=== PATIENT | male | born 1985 | race Caucasian/White ===

== ENCOUNTER 2025-03-23 20:01 | Emergency (ER) | payer BC, SELFPAY ==
[2025-03-23 20:08] VITALS: BP 128/74; PULSE 65; RESP 18; TEMP 36.7; O2SAT 99; BMI 24.4
--- NOTE | 2025-03-23 20:08 | CRLHL7_ITS ---
For Patients: As a result of the Century Cures Act, medical imaging exams and procedure reports are released immediately into your electronic medical record. You may view this report before your referring provider. If you have questions, please contact your health care provider. INDICATION: Right ankle pain TECHNIQUE: Three views right ankle FINDINGS/IMPRESSION: Normal alignment. No acute fracture or acute osseous abnormalities are visualized. Lateral soft tissue edema. Talar dome intact. Ankle mortise is preserved Dictated by Evangelina Livingston MD @ 03/23/2025 9:48:42 PM (Electronically Signed)
--- NOTE | 2025-03-23 20:12 | ED_ITS ---
HPI - Extremity Injury (Lower) General Time Seen by Provider: 20:12 Date Seen: 03/23/25 Chief Complaint: Extremity Pain/Injury, Lower Stated Complaint: Right Ankle injury Time Seen by Provider: 03/23/25 20:11 Source: patient and RN notes reviewed Mode of arrival: ambulatory Limitations: no limitations History of Present Illness HPI Narrative: This 39-year-old male is ambulatory into the ED with some difficulty due to right ankle pain but comes of his own accord. He was playing softball when he was sliding into the plate, feels his cleats cot and then he hit the bag, causing his ankle to roll. His ankle on the right side is swollen, feels quite tense, he almost feels like there is diminished sensation around the ankle due to swelling. He has applied ice, a nurse at the scene told him to go get x- rays. Nothing else was injured. He really is not feeling any numbness or tingling. Related Data Home Medications ?Medication ?Instructions ?Recorded ?Confirmed No Known Home Medications 03/23/25 0811/12 Allergies Allergy/AdvReac Type Severity Reaction Status Date / Time No Known Drug Allergies Allergy Verified 03/23/25 20:10 Review of Systems Narrative: As per HPI. PFSH PFSH Social History Smoking Status: Never smoker Second hand tobacco smoke exposure: No How often do you have a drink containing alcohol: never AUDIT-C Alcohol total score: 0 Non-prescribed substance use: denies use Exam Const: Vital Signs, click to edit/add: Vital Signs - 24 hr 03/23/25 20:08 03/23/25 22:06 03/23/25 22:07 Temperature 98.0 F 98.0 F 98.0 F Pulse Rate [Right Pulse Oximeter] 65 68 68 Respiratory Rate 18 18 18 Blood Pressure [Ri ght Upper Arm] 128/74 124/71 124/71 Pulse Oximetry 99 99 Oxygen Delivery Me thod Room Air Room Air This 39-year-old male is alert, interactive, no apparent distress, seen in exam room 7, resting on the bed comfortably. There is ice overlying his right ankle. When ice is removed there is significant swelling throughout the ankle, significant ecchymosis mostly over the anterolateral ankle. Still has a really good dorsalis pedis pulse, difficult to feel his posterior tibialis pulse due to the swelling. He is not tender over the Achilles tendon. Swelling does distribute down over the midfoot but is metatarsals are not tender, toes and foot itself are not swollen. Normal overall sensation of the toes. Did not ask him to do any range of motion about the ankle or the foot as a do suspect fracture clinically of his ankle. Documenting provider has reviewed patient's vital signs: yes Course Course ED Course: Patient is declining any need for pain medicine at this time. We will get three view x-ray of his ankle to see the extent of injury as I do suspect likely fracture. He will continue to ice and elevate while we await the x-ray imaging. Reevaluation(s) Time of Reevaluation #1: 22:00 Reevaluation #1: Patient fortunately had to wait a bit to get x-rays as there was other acute patient has had of him necessitating CT imaging. His x-ray surprisingly is negative. Did go back and re-evaluate. He is not that tender over the lateral malleolus until you get to the ligaments below it. No tenderness over the 5th metatarsal. Really no tenderness over the deltoid or the medial malleolus on palpation at this time. We did put a cam walker on patient for mobilization as I have concern about significant ligamentous disruption. Will see if he can tolerate the cam walker. If he is not significantly comfortable ambulating the cam walker, would use crutches. He plans on following up with [facility]. We are making a disc for him to take. Patient did attempt ambulation, is going to require crutches, ankle is quite tender without the crutches. He will also be in the cam walker. Vital Signs Vital signs: Initial Vital Signs Temperature 98.0 F 03/23/25 20:08 Temperature Source Temporal Artery Scan 03/23/25 20:08 Pulse Rate 65 03/23/25 20:08 Respiratory Rate 18 03/23/25 20:08 Blood Pressure 128/74 03/23/25 20:08 Blood Pressure Mean 92 03/23/25 20:08 Blood Pressure Position Sitting 03/23/25 20:08 Pulse Oximetry 99 03/23/25 20:08 Oxygen Delivery Method Room Air 03/23/25 20:08 Vital Signs Temperature 98.0 F 03/23/25 20:08 Pulse Rate 65 03/23/25 20:08 Respiratory Rate 18 03/23/25 20:08 Blood Pressure 128/74 03/23/25 20:08 Pulse Oximetry 99 03/23/25 20:08 Oxygen Delivery Method Room Air 03/23/25 20:08 Temperature 98.0 F 03/23/25 22:07 Pulse Rate 68 03/23/25 22:07 Respiratory Rate 18 03/23/25 22:07 Blood Pressure 124/71 03/23/25 22:07 Pulse Oximetry 99 03/23/25 22:06 Oxygen Delivery Method Room Air 03/23/25 22:06 MDM - Extremity Injury (Lower) Imaging Data XR right ankle: Attestation: I have reviewed the pertinent imaging results. My impression: I do not see any acute fracture on my preliminary review. Radiologist's impression: Patient: DEEPAK BONILLA Facility:?[facility] Patient ID:?[id number] Site Patient ID:?[id number]. Site :?[id number] Study:?XRay-Extremity Right ANKLE 3 VIEWS-03/23/2025 9:42:27 PM Ordering Physician:?Lucretia Stone Final Report: INDICATION: Right ankle pain TECHNIQUE: Three views right ankle FINDINGS/IMPRESSION: Normal alignment. No acute fracture or acute osseous abnormalities are visualized. Lateral soft tissue edema. Talar dome intact. Ankle mortise is preserved Dictated by Evangelina Livingston MD @ 03/23/2025 9:48:42 PM (Electronic Signature) Discharge Plan Discharge Clinical Impression: Sprain of lateral ligament of ankle joint Patient Disposition: Home, Self-Care Condition: Stable Instructions: Ankle Sprain (ED) Additional Instructions: Use the cam boot with or without crutches for pain-free ambulation. Do think you need to mobilize with the cam boot until you have been further evaluated by Orthopedics. I have concern about the lateral ankle ligaments and injury or disruption to them. It is impaired with Orthopedics for further evaluation and management. We we did not see evidence of fracture on your x-rays tonight. You can ice, elevate this ankle to try to decrease swelling. Tylenol and ibuprofen per bottle directions as needed for pain control. Contact [facility] tomorrow to get a follow-up appointment or further recommendations from them. Prescriptions: No Action No Known Home Medications Follow Up/Referrals: Provider,Not a Local [Primary Care Provider, Family Practice] Stand Alone Forms: [employer] Charge Info Instructions
--- OUTSIDE RECORDS SUMMARY | 2025-03-23 21:15 | XMS_ITS | Clinical Summary ---
Author Organization [facility] Address [address] [place] [id number] Care Team Providers Care Skeiner Name Role Phone Alexis Caballero MD Primary Care Provider Allergies No known active allergies Medications No known medications Active Problems Problem Noted Date Diagnosed Date Parotid sialolithiasis Immunizations Immunization Administration Dates Next Due Tdap 07/25/2019 Family History Medical History Relation Name Comments Coronary artery disease Father Heart attack Father at 58 Good Health Mother Diabetes Paternal Grandfather Heart Disease Paternal Grandfather Anesthesia Problem No Family History Cancer-colon No Family History Cancer-prostate No Family History Relation Name Status Comments Father Mother Paternal Grandfather Paternal Grandmother Social History Tobacco Use Types Packs/Day Years Used Date Smoking Tobacco: Never Smokeless Tobacco: Never Tobacco Cessation:Counseling Given: Yes Alcohol Use Standard Drinks/Week Comments Yes 0 (1 standard drink = 0.6 oz pur e alcohol) few beers a week PHQ-2 Answer Date Recorded PHQ-2 Score 0 07/25/2019 Social Connections Answer Date Recorded Frequency of Communication with Friends and Fami ly Not on file 08/21/2021 Financial Resource Strain Answer Date R ecorded Difficulty of Paying Living Expenses Not on file 08/21/2021 Difficulty of Paying Living Expenses Not on file 08/21/2021 Sex and Gender Information Value Date Recorded Sex Assigned at Not on file Legal Sex Male 2:31 PM REGISTRATION SPECIALIST Gender Identity Not on file Sexual Orientation Not on file Obstetrics History Last Filed Vital Signs Vital Sign Reading Time Taken Comments Blood Pressure 124/70 11/23/2021 2:57 PM CDT Pulse 64 11/23/2021 2:57 PM CDT Temperature 37.3 C (99.1 F) 09/22/2021 5:25 PM REGISTRATION SPECIALIST Respiratory Rate 16 09/22/2021 6:15 PM REGISTRATION SPECIALIST Oxygen Saturation 99% 09/22/2021 6:15 PM REGISTRATION SPECIALIST Inhaled Oxygen Concentration - - Weight 83.3 kg (183 lb 10.3 oz) 09/22/2021 9:53 AM REGISTRATION SPECIALIST Height 185.4 cm (6' 1) 09/22/2021 9:53 AM REGISTRATION SPECIALIST Body Mass Index 24.23 09/22/2021 9:53 AM REGISTRATION SPECIALIST Plan of Treatment Health Maintenance Due Date Last Done Comments HIV for age 15-65 2001 Hepatitis C screening for age 18-79 2004 Hepatitis B series for 19+ (1 of 3 - 19+ 3-dose series) 2005 Depression screening for age 12+ 07/25/2020 07/25/2019 BMI (ht and wt on same day) for age 18+ 09/20/2022 09/20/2021, 07/25/2019, 01/21/2019, Additional history exists COVID-19 vaccine series (2023- season) 2024 Lipids for age 35-44 07/25/2024 07/25/2019 Influenza Vaccine (#1) 2025 Tetanus booster 07/25/2029 07/25/2019 Pneumococcal series for age 6-49 Aged Out No longer eligible based on patient's age to complete this topic Procedures Procedure Name Priority Date/Time Associated Diagnosis Comments LIPID PANEL W REFLEX MEASURED LDL Routine 07/25/2019 11:25 AM REGISTRATION SPECIALIST Lipid screening from Last 3 Months or Most Recently Relevant to Health Maintenance Results * LIPID PANEL W REFLEX MEASURED LDL (07/25/2019 11:25 AM REGISTRATION SPECIALIST) CHOLESTEROL,TOTAL 154 100 - 199 mg/dL 07/25/2019 5:19 PM REGISTRATION SPECIALIST [facility] TRIGLYCERIDES 94 <150 mg/dL 07/25/2019 5:19 PM REGISTRATION SPECIALIST [facility] HDL CHOLESTEROL 48 >40 mg/dL 9 5:19 PM REGISTRATION SPECIALIST [facility] NON-HDL CHOLESTEROL 106 <145 mg/dl 07/25/2019 5:19 PM REGISTRATION SPECIALIST [facility] CHOL/HDL RATIO 3.21 <4.50 07/25/2019 5:19 PM REGISTRATION SPECIALIST [facility] LDL CHOLESTEROL 87 <=130 mg/dL 07/25/2019 5:19 PM REGISTRATION SPECIALIST [facility] PROVIDER ORDERED STATUS RANDOM 07/25/2019 5:19 PM REGISTRATION SPECIALIST [facility] Blood BLOOD SPECIMEN / Unknown Venipuncture / Unknown 07/25/2019 11:25 AM REGISTRATION SPECIALIST 07/25/2019 11:25 AM REGISTRATION SPECIALIST us Alexis Caballero MD CHEMISTRY Final Result [facility] [address] [place] [address], [place] from Last 3 Months or Most Recently Relevant to Health Maintenance Insurance [facility] Advance Directives * Full Code (Latest Code Status on File) Date Activated Date Inactivated Comments 09/22/2021 9:43 AM 09/22/2021 8:31 PM Question Answer Comments Code Status Discussion: Unable to Assess Preferences, Provider to review later Care Teams Skeiner Relationship Specialty Start Date End Date Alexis Caballero MD [address] [place] [address] PCP - General Family Practice 09/14/21
[2025-03-23 22:06] VITALS: BP 124/71; PULSE 68; RESP 18; TEMP 36.7; O2SAT 99
[2025-03-23 22:07] VITALS: BP 124/71; PULSE 68; RESP 18; TEMP 36.7
== END 2025-03-23 22:11 | disposition home or self-care (01) ==
PROVIDERS: Emergency Provider Family Medicine
DX: S93.401A Sprain of unspecified ligament of right ankle, initial encounter (principal); X50.1XXA Overexertion from prolonged static or awkward postures, initial encounter; Y93.64 Activity, baseball
CPT/HCPCS: 73610; 99283